=== PATIENT | female | born 1970 | race African-American/Black ===

== ENCOUNTER → 2016-10-10 | Outpatient (CLI) | payer OTHER ==
--- NOTE | ~2016-10-10 | MY11 ---
[facility] A Service of [facility] RADIOLOGY TEXT RESULTS PATIENT: ANALY TA LOCATION: [facility] : 66 UNIT #: [id number] AGE: [address]: CABRERA LASSITER MD SEX: F ORDER DR: [id number] [facility]. [place], [place] [address] [id number] O MR#: [id number] Acc #: [id number] NAME: ANALY TA. : 1970 SEX: F STUDY DATE/TIME: 10/10/2016 9:17 UNIT: [facility] ROOM: STUDY DESCRIPTION: MY Mammogram Screening Dig Basil Attending Physician: Cabrera Lassiter M.D. Referring Physician: Cabrera Lassiter M.D. Ordering Physician: Cabrera Lassiter M.D. Primary Care Physician: Cabrera Lassiter M.D. MEDICAL IMAGING REPORT This report is preliminary unless electronic signature is present EXAM Digital screening mammogram 10/10/2016 HISTORY 46-year-old woman. Positive family history, mother age 60. Prior bilateral reduction mammoplasties 1998. Annual screen. COMPARISON 06/09/2007. FINDINGS Digital imaging of each breast was completed utilizing screening protocol. Review includes FDA-approved CAD device. The breast parenchyma is partially fatty replaced. Occasional punctate calcifications noted in each breast. There is no mass. I see no suspicious microcalcifications and no suspicious architectural deformity. IMPRESSION Negative mammogram. Annual screening recommended. Patients over the age of 40 are entered into a reminder system with target due date for the next mammogram. A result letter will also be sent to the patient. BIRADS: 1 Negative. Dictated by... Obey Dumas M.D. THIS IS AN ELECTRONICALLY VERIFIED REPORT Obey Dumas M.D. at 10/10/2016 11:51 AM Jose R TD: 10/10/2016 10:05 [facility] A Service of [facility] RADIOLOGY TEXT RESULTS PATIENT: ANALY TA LOCATION: [facility] #: [id number] : 66 UNIT #: [id number] AGE: [address]: CABRERA LASSITER MD SEX: F ORDER DR: JERONIMO #: [id number] MEDICAL IMAGING REPORT Page 1 of 1 COPY
== END | disposition home or self-care (01) ==
LOC: CWCC 08:15
DX: Z12.31 Encounter for screening mammogram for malignant neoplasm of breast (principal); Z80.3 Family history of malignant neoplasm of breast; Z98.890 Other specified postprocedural states
CPT/HCPCS: G0202